=== PATIENT | female | born 1945 | race Caucasian/White ===

== ENCOUNTER 2016-10-05 09:55 | Day surgery (SDC) | payer MEDICARE, OTHER ==
--- NOTE | ~2016-10-05 | OP ---
Record Of Operation [facility] [address] [place]. [address] NAME: MARTI BAZAN : 43 STATUS : [facility] UNIT#: [id number] AGE: 71 ADM/REG DATE : 10/05/16 MR#: [id number] REPORT SERV DATE: 10/05/16 DICTATED BY: OZIEL ROSEN DATE: 10/05/16 REPORT STATUS : Draft TRANSCRIBED BY: MODL DATE: 10/05/16 DATE OF PROCEDURE: PREOPERATIVE DIAGNOSIS: Herniated nucleus pulposus, far lateral zone, left L4-5. POSTOPERATIVE DIAGNOSIS: Herniated nucleus pulposus, far lateral zone, left L4-5. PROCEDURE: Microscopic navigation assisted left L4-5 foraminotomy and microdiskectomy. BOAT DETAILER: Kuldeep Burk. ANESTHESIA: General. BLOOD LOSS: 10 mL. INDICATIONS FOR SURGERY: A 71-year-old female with intractable L4 radiculopathy. It has gotten to the point she cannot even sleep, cannot stand or walk more than a few feet, and has difficulty even getting around in her house. We have tried treating it with injections and therapy and anti-inflammatories, but that has not helped. Her pain has worsened acutely and now MRI shows a herniation in the mid to lateral foraminal zone with L4 nerve impingement. She was brought to surgery for the above procedure, having failed conservative care. Prior to surgery, risks, benefits, alternatives, and expectations explained. Consent form has been signed. DESCRIPTION OF PROCEDURE: The patient was identified in the preop holding area. Antibiotic prophylaxis was given. Neurophysiology monitoring leads were inserted. The patient brought to the operative suite. General anesthetic including endotracheal intubation was administered. She was placed prone on a Oc spine frame. Bony prominences were carefully padded. Thoracolumbar spine scrubbed with Hibiclens solution. DuraPrep was painted. Sterile drapes applied. Because of the complexity of surgery, the need to identify correct level of surgery intraoperatively as well as desire to carry out the safest and most precise dissection with the least amount of radiation exposure, I felt intraoperative navigation was mandatory. A small stab wound was carried out over the right posterior superior iliac spine. A percutaneous pin with navigational frame attached was inserted in PSIS. Intraoperative CT scan with O-arm obtained. CT information used to register the navigational system. With navigational assistance, I identified the L4-5 level. Just lateral to the facet joint, a 2-cm skin incision was carried out. A blunt navigated probe placed through the fascia muscle and docked over the lateral foramen basically between the transverse processes of L4 and L5. Microscope was sterilely draped and used throughout the remainder of procedure. Under microscopic dissection, I identified the top of the transverse process of L5. The inner transverse ligament was released with a 1 mm Kerrison rongeur. The exiting L4 nerve [facility] Of [place] [address] [facility] [place]. [address] NAME: MARTI BAZNA : 43 STATUS : [facility] PAT#: [id number] AGE: 71 ADM/REG DATE : 10/05/16 MR#: [id number] REPORT SERV DATE: 10/05/16 DICTATED BY: OZIEL ROSEN DATE: 10/05/16 REPORT STATUS : Draft TRANSCRIBED BY: KRISTY DATE: 10/05/16 root was identified distally and gently retracted slightly proximal and lateral. This gave access to the disk herniation, which was markedly impinging on the exiting nerve root. A large disk fragment with extrusion was removed. The wound was irrigated. No further compression was noted. The retractor was removed. The fascial opening was allowed to reapproximate itself. The subcutaneous tissue closed with 2-0 Vicryl sutures, 2-0 vertical mattress nylon suture used for skin closure. Sterile dressings applied. The patient returned to supine position, awakened, extubated, taken to recovery room in satisfactory condition having tolerated the procedure well. Sponge, needle, and instrument counts were correct. No intraoperative complications noted. /KRISTY Oziel Rosen D.O. / [id number] CC: Oziel Rosen D.O.
[~2016-10-05 09:55] MED LIST: ALLEGRA-D12 HOUR PO; ASAB PO; ATEN25 PO; ATEN50 PO; BENEFIBER PO; BIOTIN FORTE5 MG OR; CAT1 PO; CAT2 PO; CYMBALTA60 PO; DSS50 PO; ESTRACE2 MG PO; FISH-EPA1000 MG PO; FLEXERIL5 MG PO; HYDROCHLOROT12.5 MG PO; KDUR10 PO; LEVOTHYROXIN50 MCG PO; LEVOTHYROXIN75 MCG PO; LIVALO2 MG PO; MOBIC7.5 PO; NEUR100 PO; PROCHIEVE4 % VA; PROMETRIUM200 MG PO; ULTRAM50 PO; VITAMIN D1000 UNI1 PO; X5 PO; ZANTAC150 MG PO; [UNRECOGNIZED DRUG - OTHER]
[2016-10-05 10:30] LABS: HEMATOCRIT 46.3 % (36.0-48.0); HEMOGLOBIN 15.6 g/dL (12.0-16.0)
[2016-10-05 10:44] LABS: BUN (BLOOD UREA NITROGEN) 18 MG/DL (6-23); CALCIUM, SERUM 9.2 MG/DL (8.5-10.4); CHLORIDE, SERUM 101 MMOL/L (96-112); CO2 (CARBON DIOXIDE) 37 MMOL/L (24-34); CREATININE 0.88 MG/DL (0.55-1.02); GFR AFRICAN AMERICAN 76 ML/MIN (>=60); GFR NON AFRICAN AMERICAN 66 ML/MIN (>=60); GLUCOSE, SERUM 95 MG/DL (60-99); POTASSIUM, SERUM 3.7 MMOL/L (3.5-5.3); SODIUM, SERUM 140 MMOL/L (135-148)
== END 2016-10-05 18:15 | disposition home or self-care (01) ==
LOC: SDC 09:55
PROVIDERS: Orthopaedic Surgery Orthopaedic Surgery of the Spine
PROC: 01NB0ZZ Release Lumbar Nerve, Open Approach (ICD-10-PCS; principal; 2016-10-05 13:30)
DX: M51.26 Other intervertebral disc displacement, lumbar region (principal); M51.16 Intervertebral disc disorders with radiculopathy, lumbar region; I10 Essential (primary) hypertension; E78.00 Pure hypercholesterolemia, unspecified; E03.9 Hypothyroidism, unspecified; J45.909 Unspecified asthma, uncomplicated; K57.90 Diverticulosis of intestine, part unspecified, without perforation or abscess without bleeding; M19.90 Unspecified osteoarthritis, unspecified site; Z90.710 Acquired absence of both cervix and uterus; Z96.1 Presence of intraocular lens; Z98.41 Cataract extraction status, right eye; Z98.42 Cataract extraction status, left eye; Z90.89 Acquired absence of other organs; Z98.890 Other specified postprocedural states; Z79.899 Other long term (current) drug therapy
CPT/HCPCS: 76000; 80048; 85014; 85018; 88304; 93005; 94640; A9270-GY; J2250; J2274; J2405; J2710; J3010